=== PATIENT | male | born 1965 | race Two or more races ===

== ENCOUNTER → 2020-07-27 | Emergency (ER) | payer OTHER ==
[~2020-07-27] VITALS: Ht 180.3 cm; Wt 113.4 kg
[~2020-07-27] MED LIST: KAPVAY0.1 MG PO; ZESTRIL5 MG PO
== END | disposition left against medical advice (07) ==
LOC: ER 02:23 → EDSEX 02:23 → CPU-OBS 04:07 → ER 04:07
DX: R07.89 Other chest pain (principal); R10.13 Epigastric pain